=== PATIENT | female | born 1995 | race Asian ===

== ENCOUNTER 2020-05-06 08:37 | Emergency (ER) | payer BC, OTHER ==
[~2020-05-06] VITALS: Ht 160 cm; Wt 56.7 kg
[2020-05-06 08:56] VITALS: BP_SYST 117
[2020-05-06] MEDS ORDERED: CEPH-568 PO (09:49)
[2020-05-06] MEDS ORDERED: PRED20TA PO (09:49)
[2020-05-06] MEDS ORDERED: DIPH25CA83 PO (09:49)
[2020-05-06 10:14] VITALS: BP_SYST 117
== END 2020-05-06 10:16 | disposition home or self-care (01) ==
LOC: SED 08:37
DX: T78.40XA Allergy, unspecified, initial encounter (principal); J45.909 Unspecified asthma, uncomplicated; Z79.899 Other long term (current) drug therapy; X58.XXXA Exposure to other specified factors, initial encounter
CPT/HCPCS: 99283